=== PATIENT | female | born 1990 | race Caucasian/White ===

== ENCOUNTER 2018-12-18 09:24 | Emergency (ER) | payer OTHER, MEDICAID ==
[~2018-12-18] VITALS: Ht 175.3 cm; Wt 69.4 kg
[~2018-12-18 09:24] MED LIST: ACYCLOVIR 400400 MG PO; CELEXA 10 MG TA10 MG PO; FIORICET 50-321 EACH PO; PRENATAL PO; XANAX 0.5 MG0.5 M1 PO; ZOFRAN8 MG; [UNRECOGNIZED DRUG - OTHER]
[2018-12-18] MEDS ORDERED: MULTIVITAMINS PO (09:37)
[2018-12-18 10:45] VITALS: BP 111/70
== END 2018-12-18 10:45 | disposition home or self-care (01) ==
LOC: M.ERS 09:24
DX: K13.79 Other lesions of oral mucosa (principal); F17.210 Nicotine dependence, cigarettes, uncomplicated

== ENCOUNTER 2019-08-03 17:04 | Emergency (ER) | payer OTHER ==
[~2019-08-03] VITALS: Ht 177.8 cm; Wt 78.5 kg
[~2019-08-03 17:04] MED LIST changes: +MULTIVITAMINS PO
[2019-08-03] MEDS ORDERED: KEFLEX500 M2 PO (17:38)
[2019-08-03 17:48] VITALS: BP 109/76
== END 2019-08-03 17:49 | disposition home or self-care (01) ==
LOC: M.ERS 17:04
DX: S60.351A Superficial foreign body of right thumb, initial encounter (principal); F17.210 Nicotine dependence, cigarettes, uncomplicated; X58.XXXA Exposure to other specified factors, initial encounter; Y93.89 Activity, other specified; Y92.89 Other specified places as the place of occurrence of the external cause; Y99.8 Other external cause status